=== PATIENT | female | born 1970 | race Caucasian/White ===

== ENCOUNTER 2019-11-10 10:30 | Inpatient (IN) | payer BC ==
[2019-11-04 13:50] VITALS: BMI 22.9
--- NOTE | 2019-11-09 10:38 | HP ---
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 She also took Tamoxifen for 5 years in 2010. Bilateral mammogram 09/2019 showed architectual distrtion right breast and US showed density measuring 5mm at 12:00 and benign appearing density left 11:00. US core bx right breast at 12:00 4 cm fn showed infiltrating ductal carcinoma ER+/AZ= HER2-. MRI showed spiculated right breast mass 1.2 cm and no contralateral dz. History Source: Patient Limitations to Obtaining History: No Limitations - Past Medical History ...LMP: 10/15/19 Endocrine: Yes: Hypothyroidism - Past Surgical History Additional Past Surgical History: H/O right breast wide excison SNBX re excision for + margins intra op RT amd Tamoxifen for 5 years for DCIS - Smoking History Smoking history: Former smoker Have you smoked in the past 12 months: No If you are a former smoker, when did you quit?: 1999 Home Medications - Allergies Allergies/Adverse Reactions: Allergies Allergy/AdvReac Type Severity Reaction Status Date / Time No Known Allergies Allergy Verified 11/04/19 13:39 - Home Medications Home Medications: Ambulatory Orders Levothyroxine [Synthroid -] 150 mcg PO DAILY 11/04/19 Family Medical History Other Family History: mat aunt breast ca 60. mat aunt breast ca 75. mat cousin breast ca 40. mat aunt uterine ca 40. mat aunt CRC 30. pat uncle pancreatic ca 70. mother [id number]. mat GF gastic ca 74. mat uncle gastric ca 50. pat uncle gastric ca 60 Physical Examination Constitutional: Yes: Well Nourished Breast(s): Yes: Other (well healed incision right breast upper aspectno palpable recurrence right breast but has some fibrosis under right breast excision and post bx changes and discomfort, left breast negativeno palpable adenopathy bilaterally) Problem List - Problems (1) Breast cancer, right breast Problems reviewed: Yes Code(s): C50.911 - MALIGNANT NEOPLASM OF UNSP SITE OF RIGHT FEMALE BREAST Qualifiers: Breast location: overlapping sites of breast Estrogen receptor status: positive Patient sex: female Qualified Code(s): C50.811 - Malignant neoplasm of overlapping sites of right female breast; Z17.0 - Estrogen receptor positive status [ER+] Assessment/Plan Bilateral total mastectomies with right sentenel node biopsy, posiible axillary node dissection,lymphoscintogram and reconstruction
[2019-11-10] MEDS ORDERED: BUPIVACAINE HCL/PF 2.5 MG/ML - 30 ML VIAL IJ ONE (13:27)
[2019-11-10] MEDS ORDERED: BUPIVACAINE LIPOSOME/PF (EXPAREL) 266 MG/20 ML VIAL ONE (13:27)
[2019-11-10] MEDS ORDERED: SODIUM CHLORIDE 0.9% P/F 10 ML VIAL IJ ONE (13:27)
[2019-11-10] MEDS ORDERED: ZOLPIDEM TARTRATE 5 MG TABLET PO PRN (13:57)
[2019-11-10] MEDS ORDERED: DEXTROSE 5%-0.45% SALINE 1,000 ML IV SCH (14:00)
[2019-11-10] MEDS ORDERED: MIDAZOLAM HCL 2 MG/2 ML SINGLE DOSE VIAL ONE (14:46)
[2019-11-10] MEDS ORDERED: ROCURONIUM BROMIDE 50 MG/5 ML SYRINGE ONE ×2 (14:47→17:26)
[2019-11-10] MEDS ORDERED: PROPOFOL 20 ML ONE (14:47)
[2019-11-10] MEDS ORDERED: ceFAZolin SODIUM 1 GM VIAL ONE (15:09)
[2019-11-10] MEDS ORDERED: DEXAMETHASONE SOD PHOSPHATE 4 MG/1 ML VIAL ONE (15:09)
[2019-11-10] MEDS ORDERED: LIDOCAINE HCL/PF 2% SDV 5ML VIAL ONE (15:09)
[2019-11-10] MEDS ORDERED: ONDANSETRON 4 MG/2 ML VIAL ONE (15:09)
[2019-11-10] MEDS ORDERED: GLYCOPYRROLATE 0.2 MG/1 ML VIAL ONE (17:13)
[2019-11-10] MEDS ORDERED: NEOSTIGMINE METHYLSULFATE 0.5 MG/ML - 10 ML MDV ONE (17:13)
[2019-11-10] MEDS ORDERED: KETOROLAC TROMETHAMINE 30 MG/1 ML VIAL ONE (17:57)
--- NOTE | 2019-11-10 18:19 | OP ---
Operative Note - Note: Operative Date: 11/10/19 Pre-Operative Diagnosis: right breast cancer Operation: s/p b/l nipple sparing mastectomy/reconstruction with implants and allograft dermis/right sentinel node biopsy Surgeon: Elvis Morales Sheet Rock Nailer: Symone Mendoza Anesthesiologist/3RD PRESSMAN: Uvaldo Fajardo Anesthesia: General Specimens Removed: b/l breast tissue Estimated Blood Loss (mls): 30 Fluid Volume Replaced (mls): 1,300 Operative Report Dictated: Yes
--- NOTE | 2019-11-10 18:22 | SURG ---
Surgery Hydrologic Modeler Note Hydrologic Modeler: Symone Mendoza PA-C Date of Service: 11/10/19 Diagnosis: right breast cancer Procedure: s/p b/l nipple sparing mastectomy/reconstruction with implants and allograft dermis/right sentinel node biopsy I was present for the entirety of the operative procedure. For further detail, please refer to operative report. Visit type - Case Type Case Type: Scheduled - Emergency Emergency Visit: No - New patient This patient is new to me today: Yes Date on this admission: 11/10/19
[2019-11-10] MEDS ORDERED: oxyCODONE HCL 5 MG TABLET PO PRN (18:24)
[2019-11-10] MEDS ORDERED: PROMETHAZINE HCL 25 MG/1 ML VIAL IVPUSH PRN (18:24)
[2019-11-10] MEDS ORDERED: ONDANSETRON 4 MG/2 ML VIAL IVPUSH PRN (18:24)
[2019-11-10] MEDS: CEFAZOLIN 1 GM/D5W 1 GM/50 ML BAG IVPB SCH (20:39)
[2019-11-10] MEDS: ONDANSETRON 4 MG/2 ML VIAL IVPUSH PRN (22:38)
[2019-11-11] MEDS: CEFAZOLIN 1 GM/D5W 1 GM/50 ML BAG IVPB SCH ×4 (02:35→21:21)
[2019-11-11] MEDS: LEVOTHYROXINE NA 150 MCG TABLET PO SCH (06:37)
[2019-11-11] MEDS ORDERED: HEPARIN NA (PORCINE) 5,000 UNITS/ML 1ML VIAL SQ SCH (08:00)
[2019-11-11 08:29] LABS: HEMATOCRIT 30.1 % (32.4-45.2); HEMOGLOBIN 10.2 GM/dl (10.7-15.3); MCH 27.1 pg (25.7-33.7); MCHC 33.9 g/dl (32.0-36.0); MEAN CELL VOLUME 80.1 fl (80-96); MEAN PLT VOLUME 8.3 fl (7.5-11.1); PLATELET COUNT 158 K/MM3 (134-434); RBC 3.76 M/mm3 (3.60-5.2); WHITE BLOOD COUNT 12.6 K/mm3 (4.0-10.8)
--- NOTE | 2019-11-11 09:44 | PN ---
Progress Note, Physician Chief Complaint: S/P bilateral mastectomy, right sentinel node bx and implant reconstruction POD#1 History of Present Illness: Patient was seen at the bedside and reported that she was catheterized this am due to urinary retention (300 cc in bladder as per her nurse). She has no appetite but is tolerating water. - Current Medication List Current Medications: Active Medications Acetaminophen (Tylenol -) 650 mg PO Q4H PRN PRN Reason: FEVER Heparin Sodium (Porcine) (Heparin -) 5,000 unit SQ BID [facility] Last Admin: 11/11/19 09:23 Dose: 5,000 unit Documented by: Dextrose/Sodium Chloride (D5-1/2ns -) 1,000 mls @ 100 mls/hr IV ASDIR [facility] Cefazolin Sodium (Ancef 1 Gm Premixed Ivpb -) 1 gm in 50 mls @ 100 mls/hr IVPB Q6H-IV [facility]LEY Stop: 11/17/19 14:59 Last Admin: 11/11/19 09:25 Dose: 100 mls/hr Documented by: Levothyroxine Sodium (Synthroid -) 150 mcg PO DAILY@0700 [facility] Last Admin: 11/11/19 06:37 Dose: 150 mcg Documented by: Ondansetron HCl (Zofran Injection) 4 mg IVPUSH Q6H PRN PRN Reason: NAUSEA AND/OR VOMITING Last Admin: 11/10/19 22:38 Dose: 4 mg Documented by: Oxycodone HCl (Roxicodone -) 5 mg PO Q4H PRN PRN Reason: PAIN LEVEL 1-5 Oxycodone HCl (Roxicodone -) 10 mg PO Q4H PRN PRN Reason: PAIN LEVEL 6-10 Zolpidem Tartrate (Ambien -) 5 mg PO HS PRN PRN Reason: Insomnia - Objective Vital Signs: Vital Signs Temperature 99.0 F 11/11/19 05:00 Pulse Rate 78 11/11/19 05:00 Respiratory Rate 16 11/11/19 07:54 Blood Pressure 99/46 L 11/11/19 05:00 O2 Sat by Pulse Oximetry (%) 99 11/11/19 07:54 Constitutional: Yes: Calm Breast(s): Yes: Other (Exposed bilateral nipples with good color. Dressings are clean and dry. JPs x 4 intact and to bulb suction.) Labs: CBC, BMP 11/11/19 07:07 Problem List - Problems (1) Breast cancer, right breast Code(s): C50.911 - MALIGNANT NEOPLASM OF UNSP SITE OF RIGHT FEMALE BREAST Qualifiers: Breast location: overlapping sites of breast Estrogen receptor status: positive Patient sex: female Qualified Code(s): C50.811 - Malignant neoplasm of overlapping sites of right female breast; Z17.0 - Estrogen receptor positive status [ER+] Assessment/Plan Plan: OOB today with assistance Monitor urine output Teach NICOLAS monitoring Continue current tx regime Plan for discharge in am
[2019-11-11] MEDS: ONDANSETRON 4 MG/2 ML VIAL IVPUSH PRN (10:15)
[2019-11-11] MEDS ORDERED: ACETAMINOPHEN 1000 MG/100 ML VIAL (NON FORMULARY) IVPB ONE (11:15)
--- NOTE | 2019-11-11 12:14 | PN ---
Progress Note (short form) - Note Progress Note: ANESTHESIA POSTOP 49 YO FEMALE POD#1 S/P BL MASTECTOMY WITH RECONSTRUCTION, GETA Patient sitting in chair. Some n/v but with response to medications. Pain adequately controlled. VSS, Afebrile Continue current care. Encouraged ambulation and use of IS. No anesthetic comp lications.
[2019-11-11] MEDS ORDERED: SODIUM CHLORIDE 500 ML IV STA (14:59)
--- NOTE | 2019-11-11 15:42 | CONSULT ---
Consultation: REQUESTING PROVIDER: LARISA Smith CONSULT REQUEST: We have been asked to medically evaluate this patient for post-operative low-urine output. HISTORY OF PRESENT ILLNESS: This is a 49 year-old female with breast cancer s/p bilateral total mastectomies and reconstruction with Dr. Vasquez. Today is POD#1. Overnight patient had low urine output of 75cc's. She was straight cath'd at 6:30am with 300cc's return. As of 2:30pm she had not voided again. She was not expecting her menses until next week but thinks she started menstruating today as her pad has some drainage. Voided urine has been dark, bloody. REVIEW OF SYSTEMS: CONSTITUTIONAL: Absent: fever, chills, diaphoresis, generalized weakness, malaise, loss of appetite, weight change HEENT: Absent: rhinorrhea, nasal congestion, throat pain, throat swelling, difficulty swallowing, mouth swelling, ear pain, eye pain, visual changes CARDIOVASCULAR: Absent: chest pain, syncope, palpitations, irregular heart rate, lightheadedness, peripheral edema RESPIRATORY: Absent: cough, shortness of breath, dyspnea with exertion, orthopnea, wheezing, stridor, hemoptysis GASTROINTESTINAL: Absent: abdominal pain, abdominal distension, nausea, vomiting, diarrhea, constipation, melena, hematochezia GENITOURINARY: Absent: dysuria, frequency, urgency, hesitancy, hematuria, flank pain, genital pain MUSCULOSKELETAL: Absent: myalgia, arthralgia, joint swelling, back pain, neck pain SKIN: Absent: rash, itching, pallor HEMATOLOGIC/IMMUNOLOGIC: Absent: easy bleeding, easy bruising, lymphadenopathy, frequent infections ENDOCRINE: Absent: unexplained weight gain, unexplained weight loss, heat intolerance, cold intolerance NEUROLOGIC: Absent: headache, focal weakness or paresthesias, dizziness, unsteady gait, seizure, mental status changes, bladder or bowel incontinence PSYCHIATRIC: Absent: anxiety, depression, suicidal or homicidal ideation, hallucinations. PHYSICAL EXAMINATION Vital Signs Temperature 98.5 F 11/11/19 14:17 Pulse Rate 86 11/11/19 14:17 Respiratory Rate 16 11/11/19 14:17 Blood Pressure 110/55 L 11/11/19 14:17 O2 Sat by Pulse Oximetry (%) 99 11/11/19 14:17 GENERAL: Awake, alert, and fully oriented, in no acute distress. ABDOMEN: Soft, nontender, not distended, normoactive bowel sounds, no guarding, no rebound, no masses. No appreciable bladder distension. MUSCULOSKELETAL: Normal range of motion at all joints. No bony deformities or tenderness. No CVA tenderness. UPPER EXTREMITIES: 2+ pulses, warm, well-perfused. No cyanosis. No clubbing. Cap refill <2 seconds. No peripheral edema. LOWER EXTREMITIES: 2+ pulses, warm, well-perfused. No calf tenderness. No peripheral edema. NEUROLOGICAL: Cranial nerves II-XII intact. Normal speech. Normal gait. Laboratory Results - last 24 hr 11/11/19 07:07 WBC 12.6 H RBC 3.76 Hgb 10.2 L Hct 30.1 L MCV 80.1 MCH 27.1 MCHC 33.9 RDW 15.0 Plt Count 158 MPV 8.3 Active Medications Generic Name Dose Route Start Last Admin Trade Name Freq PRN Reason Stop Dose Admin Acetaminophen 650 mg 11/10/19 13:57 Tylenol - PO Q4H PRN FEVER Cefazolin Sodium 1 gm in 50 mls @ 100 mls/hr 11/10/19 15:00 11/11/19 09:25 Ancef 1 Gm Premixed Ivpb - IVPB 11/17/19 14:59 100 mls/hr Q6H-IV MARLEY Administration Sodium Chloride 500 mls @ 500 mls/hr 11/11/19 14:59 Normal Saline - IV 11/11/19 15:58 ASDIR STA Levothyroxine Sodium 150 mcg 11/11/19 07:00 11/11/19 06:37 Synthroid - PO 150 mcg DAILY@0700 [facility] Administration Ondansetron HCl 4 mg 11/10/19 13:57 11/11/19 10:15 Zofran Injection IVPUSH 4 mg Q6H PRN Administration NAUSEA AND/OR VOMITING Oxycodone HCl 5 mg 11/10/19 18:24 Roxicodone - PO Q4H PRN PAIN LEVEL 1-5 Oxycodone HCl 10 mg 11/10/19 18:24 Roxicodone - PO Q4H PRN PAIN LEVEL 6-10 Zolpidem Tartrate 5 mg 11/10/19 13:57 Ambien - PO HS PRN Insomnia ASSESSMENT/PLAN: 49 year-old female with breast cancer s/p bilateral total mastectomies and reconstruction. Today is POD#1. She has had low urine output. Low urine output --in 16 hours following surgery, UOP averaged 20cc's per hour --US kidneys and bladder performed, no significant findings --fluid challenged with 500cc bolus and UOP picked up --continue IV fluids --strict I&O's Dispo: We will continue to follow the patient. Thank you for this consultative opportunity. Visit type - Emergency Visit Emergency Visit: No - New Patient This patient is new to me today: Yes Date on this admission: 11/11/19 - Critical Care Critical Care patient: No
[2019-11-11] MEDS ORDERED: SODIUM CHLORIDE 1,000 ML IV SCH (17:45)
--- NOTE | 2019-11-11 18:56 | OP ---
DATE OF OPERATION: 11/10/2019 PREOPERATIVE DIAGNOSIS: Recurrent right breast cancer. POSTOPERATIVE DIAGNOSIS: Recurrent right breast cancer. PROCEDURE: Bilateral nipple-sparing mastectomies through inframammary approach with right axillary sentinel lymph node biopsy and bilateral direct implant reconstruction with the use of acellular dermal matrix. ANESTHESIA: General endotracheal anesthesia. PRIMARY SURGEON: Tony Davila MD. CHILD AND YOUTH PROGRAM ASSISTANT: LARISA Pastor. Primary surgeon for the bilateral direct implant reconstruction with acellular dermal matrix is Dr. Tony Morales, with his child life assistant LARISA Almaraz. DESCRIPTION OF PROCEDURE: Briefly, the patient is a 49-year-old premenopausal white female with a family history with her maternal great aunt who had ovarian cancer and maternal cousin had colon cancer. There is also pancreatic cancer and stomach cancer in the family. The patient herself was diagnosed with a right breast DCIS in 2010, at which time she underwent a partial mastectomy, and sentinel lymph node biopsy had 2 negative nodes, and underwent external beam radiation and took tamoxifen for 5 years. She was doing well until she noted some architectural distortion on mammography in September 2019 and ultrasound core biopsy showed recurrent invasive duct cancer which was ER/DC positive, HER2/gely negative with a Ki-67 of 15%. MRI showed the cancer to be localized. Genetic testing was negative, though she did have a variance of uncertain clinical significance. After discussion with the patient and her , she understood the need for mastectomy on the right side and decided to undergo prophylactic mastectomy on the left. She was seen by our plastic surgeon and decided to undergo nipple-sparing mastectomies with direct implant reconstruction. The patient was brought in for the surgery on November 10, 2019. She understood the need for a repeat sentinel lymph node biopsy and underwent a lymphoscintigraphy at [facility] then was brought to the [facility] [place] holding area. In the holding area, site verification was made and informed consent was obtained. She was marked preoperatively by the plastic surgeon . She underwent preoperative COVID testing which was negative. She was brought into the operating room and laid on the OR table in supine position. Venodynes were placed on the lower extremities prior to her induction. She received 2 g of Ancef prior to her incision. She underwent general endotracheal anesthesia. Both breasts were sterilely prepped and draped in usual fashion. No blue dye was used, given that we were doing nipple-sparing mastectomies. She was sterilely prepped and draped in the usual fashion, and timeout was performed. The right axillary sentinel lymph node biopsy was performed, and an incision was made in the right axilla using the previous axillary sentinel lymph node incision. Dissection was undertaken, and a hot node was easily found in the level 1 region of the right axilla with a 10-second gamma count of 19,262. Background count after removal of this node was 263. Hemostasis was achieved . At this point, a nipple-sparing mastectomy was performed on the right side through an inframammary approach about 9 cm in length. The skin edges were everted, and the breast was retracted inferiorly using [place] clamps. The skin flap was raised using the PEEK radiofrequency device superiorly to the level of the clavicle, medially to the level of the sternum, laterally to the level of the latissimus, and inferiorly below the level of the inframammary fold. The breast was taken out off the pectoralis major muscle using electrocautery from inferior medial to superior lateral and completely removed intact. We used retractors to route and all visual breast tissue was removed. This specimen was oriented with long lateral, short superior suture, and specimen radiographs showed removal of the clip in question. A retroareolar biopsy was taken underneath the right nipple-areolar complex and sent for frozen section, came back negative, so the right nipple was spared. Hemostasis was achieved, and the wound was copiously irrigated with warm, sterile saline. A separate anterior margin was taken in the 12 o'clock region of the right breast and labeled as anterior margin with a suture marking the biopsy cavity side. At this point, gloves and instruments were changed and the left breast mastectomy was performed, again through an inframammary approach. Incision was made symmetrical to the right mastectomy incision. The skin edges were everted, and the breast was retracted inferiorly using [place] clamps. The skin flap was raised using the PEEK radiofrequency device superiorly to the level of the clavicle, medially to the level of the sternum, laterally to the level of the latissimus, and inferiorly below the level of the inframammary fold. The breast was taken out off the pectoralis major muscle from inferior medial to superior lateral and completely removed intact. It was oriented with long lateral, short superior suture, and weighed to allow for appropriate cosmetic result. All visual breast tissue was again removed, and the skin flap was inspected to be sure visual breast tissue was removed. A small amount of breast tissue was left underneath the nipple areolar complex, and this was biopsied and sent for frozen section, came back negative, so the nipple was spared. Hemostasis was achieved, and the wound was copiously irrigated with warm, sterile saline. We did use the SPY skin perfusion device at this point in the case showing good blood flow through both skin flaps and nipple-areolar complexes. At this point, Dr. Morales became the primary surgeon and performed bilateral subpectoral direct implant reconstruction using Cortiva as an acellular dermal matrix which was sutured into the inferolateral aspect of both pectoralis major muscles. Two Moe drains were placed around each implant and brought through separate stab incisions on the lateral skin flaps. These were sutured in place using 3-0 nylon suture. We did use Exparel diluted to 60 mL and 30 mL were instilled on the chest wall on each side for postoperative pain control. All wounds will be closed separately by plastic surgery. All sponge and needle counts are correct at this point in the case, and estimated blood loss is about 125 mL. She was hemodynamically stable throughout. The patient will be recovered in the post anesthesia care unit postoperatively and then admitted for pain and wound management postoperatively. TONY DAVILA M.D. [id number]
[2019-11-11] MEDS: ACETAMINOPHEN 325 MG TABLET (FP) PO PRN (19:34)
[2019-11-11] MEDS: oxyCODONE HCL 5 MG TABLET PO PRN (19:35)
[2019-11-12] MEDS: CEFAZOLIN 1 GM/D5W 1 GM/50 ML BAG IVPB SCH ×2 (03:00→09:00)
[2019-11-12] MEDS: LEVOTHYROXINE NA 150 MCG TABLET PO SCH (06:57)
[2019-11-12 07:02] VITALS: BP 122/57; PULSE 90; TEMP 98.3
[2019-11-12] MEDS: oxyCODONE HCL 5 MG TABLET PO PRN (07:03)
[2019-11-12 08:33] LABS: HEMATOCRIT 28.2 % (32.4-45.2); HEMOGLOBIN 9.3 GM/dl (10.7-15.3); MCH 26.5 pg (25.7-33.7); MCHC 33.2 g/dl (32.0-36.0); MEAN CELL VOLUME 79.8 fl (80-96); MEAN PLT VOLUME 7.9 fl (7.5-11.1); PLATELET COUNT 153 K/MM3 (134-434); RBC 3.53 M/mm3 (3.60-5.2); RDW 14.4 % (11.6-15.6); WHITE BLOOD COUNT 8.2 K/mm3 (4.0-10.8)
--- NOTE | 2019-11-12 08:51 | PN ---
Physical Exam: SUBJECTIVE: Patient seen and examined at bedside,reports incisional pain,denies sob, palpitations, fever, chills, reports voiding well,without any difficulties. OBJECTIVE: Vital Signs Period Temp Pulse Resp BP Sys/James Pulse Ox Last 24 Hr 98.3 F-99.4 F 86-92 16-18 109-127/54-60 97-99 GENERAL: The patient is awake, alert, and fully oriented, in no acute distress. LUNGS: Breath sounds equal, clear to auscultation bilaterally, no wheezes, no crackles, no accessory muscle use. HEART: Regular rate and rhythm, S1, S2 without murmur, rub or gallop,bilateral breast drain and dsg intact ABDOMEN: Soft, nontender, nondistended, normoactive bowel sounds, no guarding, no rebound, no hepatosplenomegaly, no masses. EXTREMITIES: 2+ pulses, warm, well-perfused, no edema. NEUROLOGICAL: Cranial nerves II through XII grossly intact. Normal speech, gait not observed. PSYCH: Normal mood, normal affect. SKIN: Warm, dry, normal turgor, no rashes or lesions noted Laboratory Results - last 24 hr 11/11/19 11/11/19 11/11/19 15:15 15:30 16:20 WBC RBC Hgb Hct MCV MCH MCHC RDW Plt Count MPV Urine Color Red Urine Appearance Bloody Urine pH 6.5 Urine Protein 2+ H Urine Glucose (UA) Negative Urine Ketones Negative Urine Blood 3+ H Urine Nitrite Negative Urine Bilirubin Negative Urine Urobilinogen 0.2 Ur Leukocyte Esterase Negative Urine RBC >100 Urine WBC 0-2 Urine Bacteria Few Blood Type O POSITIVE O POSITIVE Antibody Screen Negative 11/12/19 07:50 WBC 8.2 RBC 3.53 L Hgb 9.3 L Hct 28.2 L MCV 79.8 L MCH 26.5 MCHC 33.2 RDW 14.4 Plt Count 153 MPV 7.9 Urine Color Urine Appearance Urine pH Urine Protein Urine Glucose (UA) Urine Ketones Urine Blood Urine Nitrite Urine Bilirubin Urine Urobilinogen Ur Leukocyte Esterase Urine RBC Urine WBC Urine Bacteria Blood Type Antibody Screen Active Medications Generic Name Dose Route Start Last Admin Trade Name Freq PRN Reason Stop Dose Admin Acetaminophen 650 mg 11/10/19 13:57 11/11/19 19:34 Tylenol - PO 650 mg Q4H PRN Administration FEVER Cefazolin Sodium 1 gm in 50 mls @ 100 mls/hr 11/10/19 15:00 11/12/19 03:00 Ancef 1 Gm Premixed Ivpb - IVPB 11/17/19 14:59 100 mls/hr Q6H-IV MARLEY Administration Sodium Chloride 1,000 mls @ 100 mls/hr 11/11/19 17:45 11/11/19 19:30 Normal Saline - IV 100 mls/hr ASDIR [facility] Administration Levothyroxine Sodium 150 mcg 11/11/19 07:00 11/12/19 06:57 Synthroid - PO 150 mcg DAILY@0700 [facility] Administration Ondansetron HCl 4 mg 11/10/19 13:57 11/11/19 10:15 Zofran Injection IVPUSH 4 mg Q6H PRN Administration NAUSEA AND/OR VOMITING Oxycodone HCl 5 mg 11/10/19 18:24 11/12/19 07:03 Roxicodone - PO 5 mg Q4H PRN Administration PAIN LEVEL 1-5 Oxycodone HCl 10 mg 11/10/19 18:24 Roxicodone - PO Q4H PRN PAIN LEVEL 6-10 Zolpidem Tartrate 5 mg 11/10/19 13:57 Ambien - PO HS PRN Insomnia ASSESSMENT/PLAN: 49 year-old female with hypothyroidism and breast cancer s/p bilateral total mastectomies and reconstruction with Dr. Vasquez. Medicine consulted for low urine output. *Low urine output -US kidneys and bladder performed, no significant findings -s/p fluid challenge - will check Field Project Manager -voiding -continue IV fluids -strict I&O's *s/p bilateral total mastectomies and reconstruction - management per sx - afebrile, leukocytosis normalized * Hypothyroidism - will cont on home dose Synthroid * Anemia-likely dilutional vs menses - asymptomatic * VTE: SCd's * F/E/N: Regular diet, replace electrolytes as needed. Dispo: As per sx. Visit type - Emergency Visit Emergency Visit: No - New Patient This patient is new to me today: Yes Date on this admission: 11/12/19 - Critical Care Critical Care patient: No
[2019-11-12] MEDS: ACETAMINOPHEN 325 MG TABLET (FP) PO PRN (09:00)
[2019-11-12 09:38] LABS: CALCIUM 7.7 mg/dl (8.5-10); CREATININE 0.7 mg/dl (0.55-1.3); POTASSIUM 3.7 mmol/L (3.5-5.1)
--- NOTE | 2019-11-12 11:44 | DS ---
Physical Examination Vital Signs: Vital Signs Temperature 98.3 F 11/12/19 06:00 Pulse Rate 90 11/12/19 06:00 Respiratory Rate 18 11/12/19 06:00 Blood Pressure 122/57 L 11/12/19 06:00 O2 Sat by Pulse Oximetry (%) 98 11/12/19 06:00 Constitutional: Yes: No Distress Wound/Incision: Yes: Clean/Dry Labs: CBC, BMP 11/12/19 07:50 11/12/19 07:50 Discharge Summary Problems reviewed: Yes Reason For Visit: BILATERAL NIPPLE SPARING MASTECTOMY Condition: Good - Instructions Diet, Activity, Other Instructions: BREAST SURGERY INSTRUCTIONS Sharath Vasquez M.D., FACS Manuelito Vasquez M.D., FACS Meri Lee M.D., FACS 1. Please call the office at to make a follow up appointment with your surgeon. This number can be also used for any urgent issues you may have. 2. Call us immediately if any of the following occur: *Bleeding from the incision or drain site (a small amount is normal) *Fever or chills *Redness and worsening tenderness around the surgical site *Drainage of pus or fluid from the incision or drain site 3. You may change the surgical dressing two (2) days after your surgery, and may shower then. If you have drains, you may shower after they have been removed, until then take a sponge bath. 4. It is normal for there to be some bruising and tenderness around the surgical site, and the breast may also be firm in this area. 5. Your surgeon used 3M DuraPrep Surgical Solution, a bacteria-killing skin preparation. It is recommended that this film remain on the skin after the procedure. The film will gradually wear away. If, however, early removal is desired: 1. Apply 8610 or 8611 3M Remover solution to the prepped area, keeping away from the wound edge or puncture site. Wipe off with a disposable towel. OR 2. Soak gauze with 70% Isopropyl alcohol and place on the prepped area for at least 40 seconds. Lightly scrub to remove the solution. 6. Please wear a comfortable bra (sports or surgical bra) all day and all night until your first follow-up visit with your surgeon. 7. The pain medicine you have been prescribed may make you constipated; make trupti e you drink plenty of water. You may use an over the counter laxative if needed. 8. You may resume your normal diet after surgery, although you may want to avoid rich foods for the first twenty-four (24) hours after surgery. Alcoholic drinks should be avoided while taking the prescribed pain medicine. 9. You may resume normal activities as long as there is no discomfort, but do not do upper body exercises until after your follow-up appointment. Do not lift anything heavier than a large phone book. You may resume driving once you have stopped taking the prescribed pain medicine and feel comfortable doing arm movements. Referrals: Manuelito Vasquez MD [Staff Physician] - Elvis Morales MD [Staff Physician] - Disposition: HOME - Home Medications Comprehensive Discharge Medication List: Ambulatory Orders Levothyroxine [Synthroid -] 150 mcg PO DAILY 11/04/19 Cefadroxil 500 mg PO BID #20 capsule 11/11/19 Oxycodone HCl/Acetaminophen [Percocet 5-325 mg Tablet -] 1 - 2 tab PO Q6H #30 tablet MDD 6 11/11/19
--- NOTE | 2019-11-15 15:15 | PATH ---
Surgical Pathology Report Patient Name: ED DE LA GARZA Med. Rec. #: [id number] /Age/Gender: 1970 (Age: 49) / F Account: [id number] Location: [facility] Taken: 11/10/2019 Received: 11/10/2019 Reported: 11/15/2019 Physicians: Manuelito Vasquez M.D. Specimen(s) Received A: RIGHT AXILLARY SENTINEL LYMPH NODE #1 (FS) B: LEFT BREAST RETROAREOLAR BIOPSY (FS) C: RIGHT BREAST RETROAREOLAR BIOPSY (FS) D: LEFT BREAST, MASTECTOMY E: RIGHT BREAST, MASTECTOMY F: RIGHT BREAST ANTERIOR MARGIN Clinical History Right recurrent breast cancer, left prophylactic Intraoperative Consult Diagnosis A. Right axillary sentinel node #1, frozen section: One negative lymph node. B. Left retroareolar biopsy, frozen section: Negative for malignancy. C. Right retroareolar biopsy, frozen section: Negative for malignancy. Kanu Sol 11/10/19 Final Diagnosis A. lymph node, right axillary sentinel #1, excision (FS): One lymph node, negative for metastatic carcinoma (0/1). B. Retroareola, left, biopsy (FS): Benign breast tissue; negative for malignancy. C. Retroareola, right, biopsy (FS): Benign breast tissue; negative for malignancy. D. Breast, left, nipple-sparing mastectomy: Focal atypical ductal hyperplasia (ADH), flat epithelial atypia (FEA), columnar cell change, small radial scar and fibrocystic changes including cyst formation WITH apocrine metaplasia and usual ductal hyperplasia (UDH). E. breast, right, nipple-sparing mastectomy: Invasive ductal carcinoma, moderately differentiated (tubule score: 3/3, nuclear grade: 2/3, mitotic score: 1/3; total score 6/9; Lavell grade 2). Invasive carcinoma measures 1.9 cm in greatest dimension, microscopically, and is present in the upper inner quadrant (UIQ) in association with / adjacent to foci of dense hyalinizing fibrosis with fat necrosis and associated calcifications, compatible with prior treated tumor bed tissue. Surgical margins are uninvolved by carcinoma; carcinoma is at 7 mm from the closest (anterior) margin. see specimen F FOR final anterior margin. No lymphovascular invasion is identified. Prior biopsy site changes are present. Pathologic stage (pTNM): rpT1c rpN0. see also invasive carcinoma Case summary below. F. breast, right, anterior margin, excision: Benign fibroadipose tissue. Comments Breast Invasive Carcinoma: Surgical Pathology Case Summary (Based on AJCC TNM 8 th edition) Procedure _X_ Total mastectomy (including nipple-sparing and skin-sparing mastectomy) Specimen Laterality _X_ Right Tumor Size _X_ Greatest dimension of largest invasive focus >1 mm (millimeters): 19 mm Histologic Type _X_ Invasive carcinoma of no special type, NOS (ductal) Histologic Grade (Lavell Histologic Score) ___ No residual invasive carcinoma Glandular (Acinar)/Tubular Differentiation _X_ Score 3 (<10% of tumor area forming glandular/tubular structures) Nuclear Pleomorphism _X_ Score 2 Mitotic Rate _X_ Score 1 Overall Grade _X_ Grade 2 (scores of 6 or 7) Tumor Focality _X_ Single focus of invasive carcinoma Ductal Carcinoma In Situ (DCIS) _X_ DCIS is not present in specimen Tumor Extension Skin _X_ Skin is not present. Skeletal Muscle _X_ No skeletal muscle is present. Margins Invasive Carcinoma Margins _X_ Uninvolved by invasive carcinoma Distance from closest margin (millimeters): 7 mm Closest margin: anterior margin in mastectomy specimen E; final anterior margin F is negative for carcinoma. Regional Lymph Nodes _X_ Uninvolved by tumor cells Number of Lymph Nodes Examined: 1 Number of [place] Nodes Examined: 1 Treatment Effect in the Breast _X_ No known presurgical therapy Treatment Effect in the Lymph Nodes _X_ No lymph node metastases and no fibrous scarring or histiocytic aggregates in the nodes. Lymphovascular Invasion _X_ Not identified Pathologic Stage Classification (pTNM, AJCC 8th Edition) Primary Tumor (Invasive Carcinoma) (pT) _X_ rpT1c: Tumor >10 mm but =20 mm in greatest dimension Regional Lymph Nodes (pN) Category (pN) _X_ pN0: No regional lymph node metastasis identified or ITCs only Biomarker Studies Results of ER and AL studies performed on this specimen (block E2) at [facility] are as follows: ER (clone [id number] mouse monoclonal antibody by [employer]): _X_ Positive: ~80 % nuclear staining with moderate to strong intensity PgR (clone16 mouse monoclonal antibody by [employer]): _X_ Positive: ~40 % nuclear staining with moderate to strong intensity. Results of Her2 (IHC) & Ki-67 studies performed on this specimen (block E2) at [place], [place] ([id number] ) are as follows: Her2 IHC (EP3 from [employer], formerly known as [id number], using Posey Polymer Refine detection kit): 2+ (Equivocal). Ki67: ~15% (low proliferative index). Results of Her2 FISH studies will be reported separately in an addendum. Positive and negative controls (internal if applicable) show appropriate results. Formalin fixation and cold ischemic times are within current ASCO/CAP recommendations for ER, PgR and Her2 testing. Electronically Signed Erica Paul M.D. Addendum Reported: 11/22/2019 Addendum Diagnosis Results of Her2 FISH studies performed on block "E2 " at [place], [place] ([id number] ) are as follows: Her2: 3.1 CEP17: 2.5 Ratio: 1.2 Interpretation: Negative See [facility] report for additional information. Erica Paul M.D. Gross Description A. Received fresh for frozen section evaluation, labeled "right axillary sentinel lymph node #1" is a 1.3 x 0.7 x 0.4 cm lymph node with attached fatty tissue. The lymph node is bisected and frozen section is performed on the lymph node. The frozen section residue is entirely submitted in one cassette. B. Received fresh for frozen section evaluation, labeled "left retroareolar biopsy" is a 1.7 x 1 x 0.2 cm portion of pink-hood tissue. Frozen section is performed on the tissue. The frozen section residue is entirely submitted in one cassette. C. Received fresh for frozen section evaluation, labeled "right retroareolar biopsy" is a 1.3 x 1.0 x 0.2 cm portion of pink-hood tissue. Frozen section is performed on the tissue. The frozen section residue is entirely submitted in one cassette. D. Received in formalin, labeled "left breast mastectomy," is a 524 gram, 20.0 x 14.0 x 5.0 cm. left mastectomy specimen with a short suture marking the superior aspect and a long suture marking the lateral aspect of the specimen, per the surgeon. There is no skin or nipple present. The deep margin is inked black and the anterior soft tissue margin is inked blue. The specimen is serially sectioned from medial to lateral. Sectioning reveals abundant dense, white, focally firm fibrous tissue. Debt And Budget Counselor sections are submitted in 17 cassettes as follows: 1-3-upper outer quadrant; 4-6-lower outer quadrant; 7-11-upper inner quadrant; 12-14-lower inner quadrant; 86-99-unuhodqa soft tissue margin; 17-deep margin. E. Received in formalin, labeled "right breast mastectomy," is a 333 gram, 12.5 x 12.5 x 4.5 cm. right mastectomy specimen with a short suture marking the superior aspect and a long suture marking the lateral aspect of the specimen, per the surgeon. There is no skin or nipple present. The deep margin is inked black and the anterior soft tissue margin is inked blue. The specimen is serially sectioned from lateral to medial. Sectioning reveals a 1.1 x 1.0 x 0.8 cm hood, indurated mass in the upper inner quadrant (UIQ). The mass is 0.7 cm from the anterior soft tissue margin and 2.0 cm from the deep margin. There is a previous biopsy cavity 1.8 cm inferior to the mass, also in the UIQ. The biopsy cavity is surrounded by firm fibrosis and fat necrosis. The remaining breast parenchyma displays multifocal white fibrous tissue. Debt And Budget Counselor sections are submitted in 20 cassettes as follows: 4-6-heeeptvx and sequentially submitted mass (anterior soft tissue margin in cassettes 1-4); 2-5-etricswc biopsy cavity with surrounding fibrosis and fat necrosis; 10-uninvolved UIQ; 11-12-lower inner quadrant; 13-15-upper outer quadrant; 16-18-lower outer quadrant; 19-anterior soft tissue margin; 20-deep margin. Time to formalin fixation: 55 minutes Total formalin fixation time: Approximately 24 hours. F. Received in formalin labeled "right breast anterior margin," is a 3.0 x 2.6 x 0.9 cm irregular portion of fibroadipose tissue with a suture marking the biopsy cavity side, per the surgeon. The new margin is inked blue and the specimen is serially sectioned. The specimen is entirely and sequentially submitted in 4 cassettes. AE/11/10/2019 ebram/11/10/2019
--- NOTE | 2019-11-18 07:59 | OP ---
DATE OF OPERATION: 11/10/2019 SURGEON: Tony Morales MD LINOTYPE MECHANIC SURGEON: Dallas Valdivia PA-C PREOPERATIVE DIAGNOSIS: Bilateral acquired chest wall deformity, status post bilateral mastectomy with Tony Vasquez MD. POSTOPERATIVE DIAGNOSIS: Bilateral acquired chest wall deformity, status post bilateral mastectomy with Tony Vasquez MD. PROCEDURE: 1. Right immediate breast reconstruction utilizing immediate insertion of silicone breast implant and Cortiva reconstruction. 2. Left immediate breast reconstruction utilizing immediate insertion of silicone breast implant and Cortiva reconstruction. 3. Intravenous injection of indocyanine green dye and intraoperative diagnostic evaluation of non-coronary intraoperative fluorescein vascular angiography x 2. ANESTHESIA: General. OPERATIVE PROCEDURE IN DETAIL: The patient was taken to the operating room. After induction of general anesthesia in the supine position, both arms were extended and padded. Venodyne boots were placed. The entire chest wall was painted with ChloraPrep solution over its entire extent, and sterile drapes were placed in the usual fashion. The markings, which had been made in the standing position preoperatively, were reoutlined with the patient's knowledge. Time-out procedure was performed. Attention was turned by Dr. Vasquez to the mastectomies. Bilateral inframammary incisions were made and Dr. Vasquez performed mastectomies. This will be dictated under separate cover. Upon completion of the mastectomies, the wounds were copiously irrigated and attention was turned to the right breast. A subpectoral dissection was begun on the right breast, superiorly from the second rib, medially to the sternal fibers, and down to the inframammary fold, elevating the pectoralis major muscle from its insertion. At this point, Cortiva 1-mm tailored allograft dermis was brought into the field and sutured superiorly along the pectoralis major muscle after rehydration. This was carried along the lateral mammary fold and down the side of the breast reconstruction. At this point, a Sientra style 107, 620 mL round, smooth, high-profile implant was chosen. The left breast tissue removed was 524 g, and the right breast approximately 314 g. This implant was placed and then sutured with 3-0 Vicryl suture continued along the inframammary fold, completely covering the implant itself. The exact same procedure was carried out symmetrically on the opposite breast, also placing a Sientra style 107, 620 mL round, smooth, high-profile implant in the same subpectoral pocket. Good symmetry was seen in the sitting position. After the implants were in place, the patient was injected with 10 mL of indocyanine green dye and the Spy imaging system was brought into the field. The skin flowed to the right and left breasts and the nipple areolar complex, and the entire skin flaps were evaluated and seen to be viable with good blood flow. Two Moe drains were brought out through separate stab wounds laterally. The Smart Infuser pump catheter was inserted medially and into the subpectoral position. Both wounds were closed symmetrically using 3-0 PDS suture on the deep tissue, 3-0 in a deep dermal fashion, and 4-0 in a subcuticular fashion. Both wounds were dressed sterilely with Mastisol and Steri-Strips with a surgical bra and a compression strap. The patient tolerated the procedure well. She was awakened, extubated and transferred to the recovery room in satisfactory condition. The visitor information assistant was present during the entire portion of the operation and closure. TONY MORALES M.D. [id number]
== END 2019-11-12 11:56 | disposition home or self-care (01) | DRG 581 ==
LOC: FM/S 11:12
PROVIDERS: ADMIT Surgery Surgical Oncology; ATTEND Surgery Surgical Oncology
PROC: 4A1GXSH Monitoring of Skin and Breast Vascular Perfusion using Indocyanine Green Dye, External Approach (ICD-10-PCS; 2019-11-10)
PROC: 0HTV0ZZ Resection of Bilateral Breast, Open Approach (ICD-10-PCS; principal; 2019-11-10 15:23)
PROC: 07B50ZX Excision of Right Axillary Lymphatic, Open Approach, Diagnostic (ICD-10-PCS; 2019-11-10 15:23)
PROC: 0HRV0JZ Replacement of Bilateral Breast with Synthetic Substitute, Open Approach (ICD-10-PCS; 2019-11-10 15:23)
DX: C50.911 Malignant neoplasm of unspecified site of right female breast (principal); Z17.0 Estrogen receptor positive status [ER+]; Z90.13 Acquired absence of bilateral breasts and nipples; G47.30 Sleep apnea, unspecified; M95.4 Acquired deformity of chest and rib; E03.9 Hypothyroidism, unspecified; D64.9 Anemia, unspecified
CPT/HCPCS: 36415; 76098-TC-FY; 76775-TC; 76856-TC; 78195-TC; 80048; 81003; 81015; 84703; 85027; 86850; 86900; 86901; 87086; 88307-TC; 88331-TC; 94760; A9541; J0131; J1644